=== PATIENT | male | born 1955 | race Caucasian/White ===

== ENCOUNTER 2023-09-12 12:17 | Outpatient (CLI) | payer BC, MEDICARE, SELFPAY ==
--- NOTE | ~2023-09-12 | CT_ITS ---
EXAMINATION: CT abdomen pelvis w con DATE: 09/12/2023 13:05 INDICATION: Right lower quadrant abdominal pain. TECHNIQUE: Computed tomography (CT) of the abdomen and pelvis was performed with 100 mL Omnipaque 350 intravenous contrast. Automated exposure control and iterative reconstruction technique were employe d. The dose-length product was 1154.84 mGy-cm. COMPARISON: PET/CT 01/09/2013 FINDINGS: The visualized portions of the lung bases are clear without pneumonia or pleural effusion. The heart size is normal. No pericardial effusion. There is diffuse hepatic steatosis. There are lazar ges of cholecystectomy. The spleen, pancreas, and adrenal glands are normal. There are cysts in the k idneys measuring up to 4 mm. There is cortical thinning of the kidneys. There are appendicoliths in t he appendix, which is fluid-filled and dilated to 13 mm with discontinuous mucosa and surrounding fat stranding, consistent with acute appendicitis. There are bilateral inguinal hernias containing fat. There are no pathologically enlarged lymph nodes. There is no free intraperitoneal fluid. There is mi ld thoracic and lumbar spondylosis. IMPRESSION: 1. Acute appendicitis. Reviewed, dictated and finalized at location A. IMPRESSION: 1. Acute appendicitis.
[2023-09-12 13:29] LABS: Basophils Percent Auto 0.3 % (0.2-1.2); Eosinophils Percent Auto 0.1 % (0-4.4); Hematocrit 43.3 % (42.0-52.0); Hemoglobin 14.3 g/dL (14.0-18.0); Immature Granulocyte Absolute 0.07 K/mm3 (0.00-0.031); Immature Granulocyte Percent A 0.4 % (0-0.5); Lymphocytes Absolute Auto 1.81 K/mm3 (0.9-3.2); Lymphocytes Percent Auto 11.5 % (18.3-44.2); Mean Corpuscular Hemoglobin 32.1 pg (26-34); Mean Corpuscular Volume 97.1 fl (80-100); Mean Platelet Volume 9.7 fl (7.4-10.4); Monocytes Absolute Auto 1.6 K/mm3 (0.1-0.6); Neutrophils Absolute Auto 12.3 K/mm3 (1.3-6.7); Neutrophils Percent Auto 77.7 % (45.5-73.1); Platelet Count Result 168 k/mm3 (150-375); Red Blood Count 4.46 M/mm3 (4.6-6.20); Red Cell Distribution Width 13.2 % (11.5-14.5); White Blood Count 15.8 K/mm3 (4.5-10.0)
[2023-09-12 13:46] LABS: Anion Gap 9 mmol/L (4-12); Blood Urea Nitrogen 23 mg/dL (9-20); Calcium 8.8 mg/dL (8.4-10.2); Carbon Dioxide 22 mmol/L (22-30); Chloride 99 mmol/L (98-107); Estimated Glomerular Filt Rate 40; Glucose 106 mg/dL (65-110); Potassium 4.2 mmol/L (3.4-5.0); Sodium 130 mmol/L (137-145)
== END 2023-09-12 12:18 | disposition home or self-care (01) ==
LOC: ANHIMG 12:21
PROVIDERS: PCP Nurse Practitioner Family; Visit Provider Nurse Practitioner Family
DX: R10.31 Right lower quadrant pain (principal); R11.0 Nausea; K35.80 Unspecified acute appendicitis
CPT/HCPCS: 36415; 74177; 80048; 85025; Q9967

== ENCOUNTER 2023-09-12 13:35 | Day surgery (SDC) | payer BC, MEDICARE, SELFPAY ==
[2023-09-12] VITALS (12 sets, daily range): BP systolic 111–142; BP diastolic 68–91; PULSE 86–108; RESP 14–22; TEMP 36.6–37.3; O2SAT 90–100
--- NOTE | 2023-09-12 13:38 | ED.RECABL ---
HPI - Recheck/Abnormal Lab/Rx General Chief Complaint: Recheck/Abnormal Lab/Rx <ROWAN Del Real Last Filed: 09/12/23 14:21> Stated Complaint: appy <ROWAN Del Real Last Filed: 09/12/23 14:21> Time Seen by Provider: 09/12/23 13:37 <ROWAN Del Real Last Filed: 09/12/23 14:21> Source: patient and old records reviewed <ROWAN Del Real Last Filed: 09/12/23 14:21> Mode of arrival: ambulatory <ROWAN Del Real Filed: 09/12/23 14:21> Limitations: no limitations <ROWAN Del Real Filed: 09/12/23 14:21> History of Present Illness HPI narrative: Patient is a 68-year-old male who presents the ED with report of acute appendicitis. Patient reports he has had pain diffusely throughout his abdomen since Monday night. Pain has since become more localized to his right lower abdomen. Reports nausea, subjective fevers, diaphoresis, decreased appetite. Was seen by PCP today and had an outpatient CT scan that showed acute appendicitis. Then sent here for further evaluation. Patient has not taken anything for pain today. Last ate at 9am this morning, small amount of chicken noodle soup. Last drank water around 1pm. <ROWAN Del Real Last Filed: 09/12/23 14:21> Related Data Home Medications: Home Medications Medication Instructions Recorded Confirmed aspirin 81 mg tablet,delayed 81 mg PO DAILY 08/17/23 08/30/23 release (Adult Low Dose Aspirin) dapagliflozin propanediol 10 mg 10 mg PO DAILY 08/17/23 08/30/23 tablet (Farxiga) fluticasone propionate 50 1 spray intranasal DAILY 08/17/23 08/30/23 mcg/actuation nasal spray,suspension (Flonase Allergy Relief) levothyroxine 125 mcg tablet 125 mcg PO DAILY 08/17/23 09/12/23 loratadine 10 mg tablet 10 mg PO DAILY 08/17/23 08/30/23 multivitamin (Daily Multi-Vitamin 1 tablet PO DAILY 08/17/23 08/30/23 tablet) <Patsy Arnold PA-C - Last Filed: 09/12/23 14:21> Allergies/Adverse Reactions: Allergies Allergy/AdvReac Type Severity Reaction Status Date / Time No Known Allergies Allergy Unverified 09/12/23 14:54 <Patsy Arnold PA-C - Last Filed: 09/12/23 14:21> Review of Systems Review of Systems: CONSTITUTIONAL: See HPI GASTROINTESTINAL: See HPI GENITOURINARY: Denies dysuria or hematuria. 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 Neuropathy Skin lesion of face <ROWAN Del Real Last Filed: 09/12/23 14:21> Surgical History Surgical History: Surgical History H/O shoulder surgery Hx of cholecystectomy <ROWAN Del Real Last Filed: 09/12/23 14:21> Family History Family History: Family History Father Hypertension <ROWAN Del Real Last Filed: 09/12/23 14:21> Social History Social History: Social History Smoking status: Never smoker Alcohol intake: current Drinks per week: 1 Substance use: never Substance use type: does not use Do You Feel Safe in your Home?: Yes Lack of Transportation: No Lack of Food: Never True Current Housing: I Have Housing Concerned About Future Housing: No Difficulty Paying Gas/Electric Bills: No Difficulty Paying for Meds: No Currently Unemployed: No Education: Don't Know Difficulty w/ Childcare or Family Care: N
--- NOTE | 2023-09-12 14:23 | PM.HPGS ---
History of Present Illness History of Present Illness Consent: Risks, benefits, and alternatives have been discussed and questions answered. Patient agrees to proceed with procedure. Chief complaint: Abdominal pain Narrative: Edin Chi is a 68 year old male with history of hypertension, hyperlipidemia, type 2 diabetes mellitus, CKD, and neuropathy. He developed abdominal pain Monday night. It was initially generalized cramping abdominal pain that became localized to the RLQ yesterday. He had nausea and vomiting Monday night. Yesterday, his pain was better and only in the RLQ. He reports chills. He went to his PCP today for evaluation and they sent him to get a CT scan abdomen/pelvis outpatient. This showed acute appendicitis and he was directed to the ER. Labs showed a WBC count 15,800. Creatinine 1.7, which appears to be at baseline. Our service was then contacted by the ED physician and he is seen in the ER now. Review of Systems Review of Systems: All systems reviewed & are unremarkable except as noted in HPI and below PMFSH Past Medical History Medical History Allergies Chronic kidney disease, stage 3 Erectile dysfunction Hyperlipidemia Hypertension Hypothyroidism Lumbar pain with radiation down left leg Neuropathy Skin lesion of face Surgical History Surgical History H/O shoulder surgery Hx of cholecystectomy Family History Family History Father Hypertension Social History Social History Smoking status: Never smoker Alcohol intake: current Drinks per week: 1 Substance use: never Substance use type: does not use Do You Feel Safe in your Home?: Yes Lack of Transportation: No Lack of Food: Never True Current Housing: I Have Housing Concerned About Future Housing: No Difficulty Paying Gas/Electric Bills: No Difficulty Paying for Meds: No Currently Unemployed: No Education: Don't Know Difficulty w/ Childcare or Family Care: No Living arrangements: with family Occupation/Education: retired Gender identity (if verbalized by the patient): Male Spiritual care concerns: No Agree to blood products: Yes Meds Home Medications and Allergies Home Medications Medication Instructions Recorded Confirmed Type aspirin 81 mg tablet,delayed 81 mg PO DAILY 08/17/23 08/30/23 History release (Adult Low Dose Aspirin) dapagliflozin propanediol 10 mg 10 mg PO DAILY 08/17/23 08/30/23 History tablet (Farxiga) duloxetine 20 mg capsule,delayed 20 mg PO DAILY #90 caps 08/17/23 08/30/23 Rx release fluticasone propionate 50 1 spray intranasal DAILY 08/17/23 08/30/23 History mcg/actuation nasal spray,suspension (Flonase Allergy Relief) levothyroxine 125 mcg tablet 125 mcg PO DAILY 08/17/23 08/30/23 History lisinopril 10 mg tablet 10 mg PO DAILY #90 tabs 08/17/23 08/30/23 Rx loratadine 10 mg tablet 10 mg PO DAILY 08/17/23 08/30/23 History multivitamin (Daily Multi-Vitamin 1 tablet PO DAILY 08/17/23 08/30/23 History tablet) sildenafil 25 mg tablet (Viagra) 25 mg PO DAILY PRN sexual activity 08/17/23 08/17/23 Rx #20 tabs rosuvastatin 10 mg tablet 10 mg PO DAILY #90 tabs 08/23/23 08/30/23 Rx Allergies Allergy/AdvReac Type Severity Reaction Status Date / Time No Known Allergies Allergy Unverified 09/12/23 10:38 Vital Signs Vital Signs - 24 hr 09/12/23 13:43 Temperature 98.2 F Pulse Rate 91 Respiratory Rate 18 Blood Pressure 130/91 H Pulse Oximetry 99 Exam Const: General: comfortable and no acute distress Nutritional Appearance: average body habitus Orientation/consciousness: patient oriented x3 HENMT: Head: normocephalic and atraumatic Ears: hearing grossly normal bilaterally Mouth: Yes moist mucous membranes Eye
[2023-09-12] MEDS: PIPERACILLN/TAZ 3.375GM/NS50ML 3.375 GM/50 ML BAG IVPB (14:26)
--- NOTE | 2023-09-12 14:46 | WPDANESEPPF ---
Anes - Initial Pre Proc Eval Procedure: Operation Date: 09/12/23 14:30 Proposed Procedures p Laparoscopic Appendectomy - Lorna Ham MD Date/Time: 09/12/23 14:46 Surgeon: Lorna Ham MD Pre Op Diagnosis: Abdominal pain Patient Data Age: 68 Gender: M Height: 1.75 m Weight: 105 kg Last Vital Signs Temp 36.6 C 09/12/23 14:30 Pulse 88 09/12/23 14:30 Resp 14 09/12/23 14:30 BP 130/87 09/12/23 14:30 Pulse Ox 97 09/12/23 14:30 Allergies Allergy/AdvReac Type Severity Reaction Status Date / Time No Known Allergies Allergy Unverified 09/12/23 10:38 Home Medications Medication Instructions Recorded Confirmed Type aspirin 81 mg tablet,delayed 81 mg PO DAILY 08/17/23 08/30/23 History release (Adult Low Dose Aspirin) dapagliflozin propanediol 10 mg 10 mg PO DAILY 08/17/23 08/30/23 History tablet (Farxiga) duloxetine 20 mg capsule,delayed 20 mg PO DAILY #90 caps 08/17/23 08/30/23 Rx release fluticasone propionate 50 1 spray intranasal DAILY 08/17/23 08/30/23 History mcg/actuation nasal spray,suspension (Flonase Allergy Relief) levothyroxine 125 mcg tablet 125 mcg PO DAILY 08/17/23 08/30/23 History lisinopril 10 mg tablet 10 mg PO DAILY #90 tabs 08/17/23 08/30/23 Rx loratadine 10 mg tablet 10 mg PO DAILY 08/17/23 08/30/23 History multivitamin (Daily Multi-Vitamin 1 tablet PO DAILY 08/17/23 08/30/23 History tablet) sildenafil 25 mg tablet (Viagra) 25 mg PO DAILY PRN sexual activity 08/17/23 08/17/23 Rx #20 tabs rosuvastatin 10 mg tablet 10 mg PO DAILY #90 tabs 08/23/23 08/30/23 Rx Patient hx anesthesia problems: none Family hx anesthesia problems: none Results Review: All pre-operative results and documents have been reviewed as part of the pre-operative evaluation. [facility] Past Medical History Medical History Allergies Chronic kidney disease, stage 3 Erectile dysfunction Hyperlipidemia Hypertension Hypothyroidism Lumbar pain with radiation down left leg Neuropathy Skin lesion of face Surgical History Surgical History H/O shoulder surgery Hx of cholecystectomy Family History Family History Father Hypertension Social History Social History Smoking status: Never smoker Alcohol intake: current Drinks per week: 1 Substance use: never Substance use type: does not use Do You Feel Safe in your Home?: Yes Lack of Transportation: No Lack of Food: Never True Current Housing: I Have Housing Concerned About Future Housing: No Difficulty Paying Gas/Electric Bills: No Difficulty Paying for Meds: No Currently Unemployed: No Education: Don't Know Difficulty w/ Childcare or Family Care: No Living arrangements: with family Occupation/Education: retired Gender identity (if verbalized by the patient): Male Spiritual care concerns: No Agree to blood products: Yes Anes - Eval Final PreProcedure Day of Procedure 09/12/23 14:46 Patient weight: obese Heart: regular rate and rhythm Lungs: decreased breath sounds Airway: Mallampati scale class II Neurological: alert and oriented Last oral intake: >/= 8 hours ASA classification: III Emergent: yes Anesthetic plan: proceed Anesthesia type and monitoring: general ETT and standard monitoring Results Review: All pre-operative results and documents have been reviewed as part of the pre-operative evaluation. Informed Consent: The patient's anesthetic plan and its attendant risks and benefits were discussed with the patient/family/POA. Questions were solicited and answers provided to the satisfaction of the patient/family/POA.
--- NOTE | 2023-09-12 15:04 | WPDHPUPDATE1 ---
History and Physical Update Update Date/Time: 09/12/23 15:04 History and Physical has been reviewed, including an updated exam of the patient. There are NO changes in the patient's condition. Risks, benefits, and alternatives have been discussed and questions answered. Patient agrees to proceed with procedure.
[2023-09-12] MEDS: BUPIVACAINE/EPINEPHRINE 0.5% 50 ML VIAL 30 ML INFILTRATE (15:29)
--- NOTE | 2023-09-12 15:55 | P.OP_ITS ---
Procedure Note - Detailed Date of Procedure 09/12/23 Pre-op Diagnosis Acute appendicitis Post-op Diagnosis Other (Acute perforated appendicitis) Procedure Performed Laparoscopic appendectomy Surgeon Lorna Ham MD Anesthesia General Indications 68-year-old male presenting to the emergency department complaining of right lower quadrant abdominal pain. Workup, including imaging, is significant for acute appendicitis. Findings Severe acute appendicitis with small perforation Description of Procedure The patient was taken to the operating room and placed in the supine position. After adequate induction of general anesthesia, the patient was prepped and draped in the normal sterile fashion. A time-out was then done to verify the patient's identity, as well as the procedure being performed. Began by making a 5 mm incision in the infraumbilical region. Through this a Veress needle was placed in the peritoneal cavity and CO2 gas was insufflated. After adequate pneumoperitoneum was achieved, the Veress needle was removed and a 5 mm port trocar was placed through this incision. I then placed the laparoscopic through this trocar and under direct visualization placed 2 further 5 mm suprapubic p ort, as well as an additional 12 mm port in the left lower abdomen. At this point, the cecum was identified and retracted both medially and cephalad. This allowed us to expose the appendix. The appendix was noted to be severely inflamed and inflamed with a small perforation in the body of the appendix. Of note, there was no obvious abscess in the periappendiceal area. I was then able to grasp the tip of the appendix and retract this laterally and anteriorly. This allowed us to expose the base of the appendix with the cecum. At this point I created a window between the appendix and the mesoappendix using a Kristi dissector. Once accomplished, I transected the mesoappendix with a white vascular staple load. The stapler was then re-loaded with a blue thick tissue staple load and this was used to transect the base of the appendix with the cecum. I then placed the appendiceal specimen in an endo-pouch and removed this through the 12 mm port site. The specimen will now be sent to pathology for further review. I then copiously irrigated the right lower quadrant. No other pathology was noted and both staple lines were noted to be intact and hemostatic. I then proceeded to close the fascia of the 12 mm left lower quadrant port site with a Bartolome cone an 0 Vicryl suture. The abdomen was then desufflated and all ports removed. All port sites were then closed with 4-0 Monocryl subcuticular suture. Dermabond was placed on all wounds. The patient tolerated the procedure well and was extubated postoperatively. He will be transferred to the recovery room in stable condition. Estimated Blood Loss 20 Drains No Packing No Pathology Yes Complications No immediate complications Condition Stable Disposition PACU [facility] Billing Surgery - Charge Forward: Surgery Billing
[2023-09-12] MEDS: LACTATED RINGERS 1,000 ML 30 ML IV CONT ×2 (16:08→17:08)
== END 2023-09-12 18:04 | disposition home or self-care (01) ==
LOC: ANHED 14:32 → ANHSURGERY 14:37
PROVIDERS: Emergency Provider Physician Assistant; PCP Nurse Practitioner Family; Visit Provider Surgery
PROC: 0DTJ4ZZ Resection of Appendix, Percutaneous Endoscopic Approach (ICD-10-PCS; CPT 44970; principal; 2023-09-12 14:30)
DX: K35.32 Acute appendicitis with perforation, localized peritonitis, and gangrene, without abscess (principal); I12.9 Hypertensive chronic kidney disease with stage 1 through stage 4 chronic kidney disease, or unspecified chronic kidney disease; N18.30 Chronic kidney disease, stage 3 unspecified; E78.5 Hyperlipidemia, unspecified; E03.9 Hypothyroidism, unspecified; G62.9 Polyneuropathy, unspecified; Z79.82 Long term (current) use of aspirin; Z79.84 Long term (current) use of oral hypoglycemic drugs; E66.9 Obesity, unspecified; Z68.34 Body mass index [BMI] 34.0-34.9, adult
CPT/HCPCS: 44970; 36415; 74177; 80048; 85025; 87040; 88304; 96374; 99285; J0330; J1100; J1170; J2250; J2405; J2543; J3010; J7030; J7120; Q9967